=== PATIENT | male | born 1955 | race Caucasian/White ===

== ENCOUNTER 2017-04-29 00:55 | Emergency (ER) | payer OTHER ==
[~2017-04-29] VITALS: Ht 193 cm; Wt 109.0 kg
[2017-04-29 01:06] VITALS: BP 131/80; PULSE 70; RESP 20; TEMP 98; O2SAT 98
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
[2017-04-29] MEDS ORDERED: HYDROmorphone HCL PF 1 MG/ML VIAL IVP ONE (02:15)
[2017-04-29] MEDS ORDERED: ONDANSETRON HCL 4 MG/2 ML VIAL IV ONE (02:15)
[2017-04-29] MEDS ORDERED: SODIUM CHLOR 0.9% 1000 ML INJ 1,000 ML IV SCH (02:15)
[2017-04-29] MEDS ORDERED: TETANUS/DIPHTHERIA TOXOID ADULT 0.5 ML VIAL IM ONE (02:15)
[2017-04-29] MEDS ORDERED: LIDOCAINE 1%/EPINEPHrine 1:100,000 SOLN 30 ML VIAL ONE (02:39)
[2017-04-29] MEDS ORDERED: LIDOCAINE 1%/EPINEPHrine 1:100,000 SOLN 20 ML VIAL INFIL ONE (02:45)
[2017-04-29] MEDS ORDERED: PERC7.5T13 PO (03:29)
[2017-04-29] MEDS ORDERED: oxyCODONE/ACETAMINOPHEN 7.5 MG/325 MG TAB PO ONE (03:45)
[2017-04-29 03:56] VITALS: BP 140/76
== END 2017-04-29 03:59 | disposition home or self-care (01) ==
LOC: PHED 00:55
DX: S61.401A Unspecified open wound of right hand, initial encounter (principal); S71.101A Unspecified open wound, right thigh, initial encounter; Z23 Encounter for immunization; W34.09XA Accidental discharge from other specified firearms, initial encounter
CPT/HCPCS: 73130; 73552; 90471; 90714; 96361; 96374; 96375; 99284; E0113; J1170; J2405; J7030

== ENCOUNTER 2017-09-06 09:07 | Emergency (ER) | payer OTHER ==
[~2017-09-06] VITALS: Ht 193 cm; Wt 102.9 kg
[~2017-09-06 09:07] MED LIST: PERC7.5T13 PO
[2017-09-06 09:20] VITALS: BP 152/86; PULSE 64; RESP 16; TEMP 98; O2SAT 99
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
[2017-09-06] MEDS ORDERED: LIDOCAINE HCL 1% 50 ML VIAL INFIL ONE (10:00)
== END 2017-09-06 10:41 | disposition home or self-care (01) ==
LOC: PHEFT 09:07
DX: S61.214A Laceration without foreign body of right ring finger without damage to nail, initial encounter (principal); W22.8XXA Striking against or struck by other objects, initial encounter
CPT/HCPCS: 12001

== ENCOUNTER 2017-09-18 12:50 | Emergency (ER) | payer OTHER ==
[~2017-09-18] VITALS: Ht 182.9 cm; Wt 101.3 kg
[2017-09-18 13:17] VITALS: BP 126/80; PULSE 81; RESP 18; TEMP 98.1; O2SAT 97
--- NOTE | 2017-09-18 15:05 | PD ---
HPI . Suture removal Chief Complaint: Wound/Suture/Staple Re-Check Time Seen by Provider: 14:47 Travel History International Travel<30 days: No Contact w/Intl Traveler<30days: No Traveled to known affect area: No History of Present Illness HPI 62-year-old male patient presents emergency department for suture removal from a laceration on his right fourth finger. Patient had sutures placed at our facility on the 06 of September. Laceration is well approximated and healing appropriately. No signs or symptoms of localized infection at this time. A sugar denies any fever, chills, malaise. Patient denies any numbness tingling or age of motion limitation. PF[facility] Social History Alcohol Use: Yes Tobacco Use: No Allergies-Medications (Allergen,Severity, Reaction): Coded Allergies: No Known Allergies (Unverified , 09/18/17) Reported Meds & Prescriptions Reported Meds & Active Scripts Active No Active Prescriptions or Reported Medications Review of Systems Except as stated in HPI: all other systems reviewed are Neg Physical Exam Narrative GENERAL: Well-nourished, well-developed 62-year-old male patient in no acute distress. Nontoxic appearing. SKIN: 2 cm laceration to the dorsal aspect of the proximal right fourth finger with 7 sutures intact. HEAD: Normocephalic. Atraumatic. EYES: No scleral icterus. No injection or drainage. NECK: Supple, trachea midline. No JVD or lymphadenopathy. CARDIOVASCULAR: Regular rate and rhythm without murmurs, gallops, or rubs. RESPIRATORY: Breath sounds equal bilaterally. No accessory muscle use. GASTROINTESTINAL: Abdomen soft, non-tender, nondistended. MUSCULOSKELETAL: No cyanosis, or edema. Data Data Last Documented VS Vital Signs Date Time Temp Pulse Resp B/P (MAP) Pulse Ox O2 Delivery O2 Flow Rate FiO2 09/18/17 13:17 98.1 81 18 126/80 (95) 97 Orders Orders Wound Care (09/18/17 15:05) Ed Discharge Order (09/18/17 15:05) MDM Medical Decision Making Medical Screen Exam Complete: Yes Emergency Medical Condition: Yes Differential Diagnosis Differential diagnosis includes but not limited to laceration, suture removal, wound repair, wound repair Narrative Course 62-year-old male patient presents to the emergency department to get 7 sutures removed from the laceration he sustained to his right fourth finger on 06 September. Laceration is well approximately the healing appropriately. Sutures removed. Wound care applied and patient discharged home with instructions to return with any worsening condition but otherwise follow up with primary care. Diagnosis Primary Impression: Visit for suture removal Referrals: Primary Care Physician Patient Instructions: Acute Wound Care (GEN), General Instructions Additional Instructions: Please return to emergency department if your symptoms return or worsen. Follow up with your primary care provider. Keep wound clean and dry. May take ibuprofen as needed for pain or swelling. Scripts No Active Prescriptions or Reported Meds Disposition: DISCHARGE HOME Condition: Stable Caty Moody Sep 18, 2017 15:05
== END 2017-09-18 15:18 | disposition home or self-care (01) ==
LOC: PHED 12:50 → PHEFT 15:18
DX: S61.214D Laceration without foreign body of right ring finger without damage to nail, subsequent encounter (principal); X58.XXXD Exposure to other specified factors, subsequent encounter; Z48.02 Encounter for removal of sutures
CPT/HCPCS: 99281